=== PATIENT | female | born 1955 | race Caucasian/White ===

== ENCOUNTER 2017-09-12 20:11 | Emergency (ER) | payer BC, SELFPAY ==
[2017-09-12] MEDS ORDERED: METOPROLOL TAR 50 MG TAB ONE (21:22)
[2017-09-12] MEDS ORDERED: ASPIRIN 81 MG CHEWABLE TABLET ONE (21:22)
[2017-09-12 21:37] LABS: Absolute Lymphocytes (CBC) 1.4 K/uL (0.7-4.9); Absolute Monocytes 0.5 K/uL (0.1-1.3); Absolute Neutrophil 5.1 K/uL (1.8-8.0); Basophils % 0.8 % (0-1.3); Eosinophils % 1.4 % (0-4.4); Hematocrit 36.2 % (36.0-45.0); Lymphocytes % 19.4 % (15.3-44.8); MCH 30.8 pg (27.0-35.0); MCV 89.8 fL (80-100); MPV 7.1 fL (7.6-11.3); Monocytes % 6.7 % (3.3-12.3); RBC Red Blood Cell Count 4.03 M/uL (3.86-4.86)
[2017-09-12 21:45] LABS: Potassium 3.1 mEq/L (3.6-5.0)
[2017-09-12 21:52] LABS: Albumin 3.8 g/dL (3.2-5.5); Bilirubin Direct 0.1 mg/dL (0-0.2); Bilirubin Total 0.2 mg/dL (0.3-1.2); Magnesium 1.7 mg/dL (1.8-2.5); Protein, Total 6.9 g/dL (6.0-8.3)
[2017-09-12 21:55] LABS: CKMB Creatine Kinase MB 1.8 ng/ml (0.3-4.0)
--- NOTE | 2017-09-12 22:18 | ER ---
Nurse's Notes [facility] Name: Lola Douglas Age: 62 yrs Sex: Female : 1955 Arrival Date: 09/12/2017 Time: 20:17 Bed 26 Private MD: Diagnosis: Chest pain, unspecified Presentation: 09/12 20:21 Presenting complaint: Patient states: Chest pain for 1 month. Patient describes pain as aj burning that goes up into throat. 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 Transition of care: patient was not received from another setting of care. Onset of symptoms was August 2017. Care prior to arrival: None. 20:21 Method Of Arrival: Ambulatory aj 20:21 Acuity: CHRIS 3 aj Triage Assessment: 20:24 General: Appears in no apparent distress. comfortable, Behavior is anxious. Pain: aj Complains of pain in chest Pain currently is 8 out of 10 on a pain scale. Neuro: Level of Consciousness is awake, alert, obeys commands, Oriented to person, place, time, situation. Cardiovascular: Reports chest pain, nausea, Capillary refill < 3 seconds in bilateral fingers Patient's skin is warm and dry. GI: Reports indigestion, nausea. Derm: Skin is intact, is healthy with good turgor, Skin is pink, warm \T\ dry. normal. Historical: - Allergies: 20:24 PENICILLINS; aj 20:24 Sulfa (Sulfonamide Antibiotics); aj - Home Meds: 20:24 aspirin 81 mg Oral chew 1 tab once daily [Active]; metoprolol tartrate 50 mg Oral tab 1 aj tab once daily for Hypertension [Active]; Prednisone Oral [Active]; albuterol sulfate 2.5 mg /3 mL (0.083 %) Inhl nebu [Active]; - PMHx: 20:24 Anxiety; Hypertension; COPD; Myocardial infarction; aj - PSHx: 20:24 Heart stents; aj - Immunization history:: Adult Immunizations up to date. - Social history:: Smoking status: Patient uses tobacco products, electronic cigarette. Screenin:50 Abuse screen: Denies threats or abuse. rk2 20:50 Nutritional screening: No deficits noted. Tuberculosis screening: No symptoms or risk rk2 factors identified. Fall Risk None identified. Assessment: 20:50 General: Appears in no apparent distress. well developed, well nourished, Behavior is rk2 calm, cooperative. 20:50 Pain: Pain radiates to chest Pain began 2-3 days ago. Neuro: Level of Consciousness is rk2 alert, obeys commands, Oriented to person, place, time, situation. Cardiovascular: Rhythm is sinus rhythm. Respiratory: Airway is patent Respiratory effort is even, unlabored, Respiratory pattern is regular, symmetrical. Derm: Skin is pink, warm \T\ dry. 20:59 Reassessment: Xray completed \T\ bedside. rk2 22:20 Reassessment: Pt. refused to be admitted, signed AMA. Pt. understands the risks rk2 involved and possible consequences of her decision... Pt. was advised that if she has any changes or changes her mind and feels that she needs to be re-seen she is welcome to return. IV removed and pt. ambulated out on her own. Vital Signs: 20:24 BP 156 / 97; Pulse 101; Resp 23; Temp 97.7; Pulse Ox 99% on R/A; Weight 58.06 kg; aj Height 5 ft. 6 in. (167.64 cm); Pain 8/10; 21:30 BP 146 / 79; Pulse 80; Resp 17; rk2 22:00 BP 147 / 97; Pulse 69; Resp 17; Pulse Ox 98% on R/A; rk2 20:24 Body Mass Index 20.66 (58.06 kg, 167.64 cm) ED Course: 20:17 Patient arrived in ED. al2 20:23 Triage completed. aj 20:24 Arm band placed on left wrist. Patient placed in an exam room. aj 20:36 Denice Servin RN is Primary Nurse. rk2 20:39 Guillermo Rousseau PA is PHCP. cp 20:39 Guillermo Mnan MD is Attending Physician. cp 20:50 Patient has correct armband on for positive identification. Bed in low position. Call rk2 light in reach. line operator on. Pulse ox on. 20:50 Patient maintains SpO2 saturation greater than 95% on room air. rk2 20:59 XRAY Chest (1 view) Sent. rk2 21:02 X-ray completed. Portable x-ray completed in exam room. Patient tolerated procedure kc2 well. 21:03 XRAY Chest (1 view) In Process Unspecified. EDMS 21:16 Basic Metabolic Panel Sent. rk2 21:16 Ckmb Sent. rk2 21:16 CPK Sent. rk2 22:24 No provider procedures requiring assistance completed. IV discontinued. rk2 Administered Medications: 21:29 Drug: Metoprolol TARTRATE (Lopressor) 50 mg Route: PO; rk2 22:00 Follow up: Response: No adverse reaction rk2 21:30 Not Given (Pt. states that she has had 5 81 mg ASA today already): Aspirin Chewable rk2 Tablet 324 mg PO once; 81 mg tablets x 4 Outcome: 22:24 AMA AMA form signed rk2 22:24 Condition: good 22:24 Instructed on Regarding AMA 22:26 Patient left the ED. rk2 Signatures: Dispatcher [employer] EDJenny Frnacis, RN RN Guillermo Raymundo PA PA cp Carr, Kelsie kc2 Pamela Lora2 Denice Servin RN RN rk2
--- NOTE | 2017-09-12 22:18 | EDPHYS ---
Physician Documentation [facility] Name: Lola Douglas Age: 62 yrs Sex: Female : 1955 Arrival Date: 09/12/2017 Time: 20:17 Bed 26 Private MD: ED Physician Guillermo Mann HPI: 09/12 21:01 This 62 yrs old Female presents to ER via Ambulatory with complaints of Chest cp Pain. 21:01 The patient or guardian reports chest pain that is located primarily in the anterior cp chest wall, bilaterally. 21:01 Onset: 1 month(s) ago. Associated signs and symptoms: Pertinent negatives: cough, cp diaphoresis, headache, lower extremity pain, lower extremity swelling, near syncope, recent travel, syncope, vomiting. The chest pain is described as burning. Duration: The patient or guardian reports multiple episodes, that are intermittent, that wax and wane. Modifying factors: the symptoms are aggravated by emotionally stressful situations. Severity of pain: in the emergency department the pain has resolved and did so while in waiting room. Historical: - Allergies: 20:24 PENICILLINS; aj 20:24 Sulfa (Sulfonamide Antibiotics); aj - Home Meds: 20:24 aspirin 81 mg Oral chew 1 tab once daily [Active]; metoprolol tartrate 50 mg Oral tab 1 aj tab once daily for Hypertension [Active]; Prednisone Oral [Active]; albuterol sulfate 2.5 mg /3 mL (0.083 %) Inhl nebu [Active]; - PMHx: 20:24 Anxiety; Hypertension; COPD; Myocardial infarction; aj - PSHx: 20:24 Heart stents; aj - Immunization history:: Adult Immunizations up to date. - Social history:: Smoking status: Patient uses tobacco products, electronic cigarette. ROS: 21:05 Constitutional: Negative for body aches, chills, fever, poor PO intake. cp 21:05 Eyes: Negative for injury, pain, redness, and discharge. cp 21:05 ENT: Negative for drainage from ear(s), ear pain, sore throat, difficulty swallowing, difficulty handling secretions. 21:05 Cardiovascular: Positive for chest pain, Negative for edema, palpitations. 21:05 Respiratory: Negative for cough, shortness of breath, wheezing. 21:05 Abdomen/GI: Negative for abdominal pain, vomiting, diarrhea, constipation, black/tarry stool, rectal bleeding. 21:05 Back: Negative for pain at rest, pain with movement, radiated pain. 21:05 : Negative for urinary symptoms. 21:05 Skin: Negative for cellulitis, rash. 21:05 Neuro: Negative for altered mental status, dizziness, headache, syncope, near syncope, weakness. 21:05 All other systems are negative. Exam: 20:45 ECG was reviewed by the Attending Physician. cp 21:10 Constitutional: The patient appears in no acute distress, alert, awake, cp non-diaphoretic, non-toxic, well developed, well nourished. 21:10 Head/Face: Normocephalic, atraumatic. Eyes: Pupils equal round and reactive to light, cp extra-ocular motions intact. Lids and lashes normal. Conjunctiva and sclera are non-icteric and not injected. Cornea within normal limits. Periorbital areas with no swelling, redness, or edema. ENT: Nares patent. No nasal discharge, no septal abnormalities noted. Tympanic membranes are normal and external auditory canals are clear. Oropharynx with no redness, swelling, or masses, exudates, or evidence of obstruction, uvula midline. Mucous membranes moist. Chest/axilla: Normal chest wall appearance and motion. Nontender with no deformity. No lesions are appreciated. 21:10 Cardiovascular: Rate: tachycardic, Rhythm: regular, Pulses: Pulses are 2+ in right radial artery and left radial artery. Heart sounds: murmur, not appreciated, Edema: is not appreciated, JVD: is not appreciated. 21:10 Respiratory: the patient does not display signs of respiratory distress, Respirations: normal, no use of accessory muscles, no retractions, no splinting, no tachypnea, labored breathing, is not present, Breath sounds: are clear throughout, no decreased breath sounds, no stridor, no wheezing. 21:10 Abdomen/GI: Inspection: abdomen appears normal, Bowel sounds: active, all quadrants, Palpation: abdomen is soft and non-tender, in all quadrants, rebound tenderness, is not appreciated, voluntary guarding, is not appreciated, involuntary guarding, is not appreciated. 21:10 Back: pain, is absent, ROM is normal. 21:10 Skin: cellulitis, is not appreciated, no rash present. 21:10 Neuro: Orientation: to person, place \T\ time. Mentation: is normal, Cerebellar function: is grossly normal, Motor: moves all fours, strength is normal, Sensation: no obvious gross deficits. Vital Signs: 20:24 BP 156 / 97; Pulse 101; Resp 23; Temp 97.7; Pulse Ox 99% on R/A; Weight 58.06 kg; aj Height 5 ft. 6 in. (167.64 cm); Pain 8/10; 21:30 BP 146 / 79; Pulse 80; Resp 17; rk2 22:00 BP 147 / 97; Pulse 69; Resp 17; Pulse Ox 98% on R/A; rk2 20:24 Body Mass Index 20.66 (58.06 kg, 167.64 cm) aj MDM: 20:43 Patient medically screened. haven 21:00 Differential diagnosis: abnormal EKG, acute myocardial infarction, acute pericarditis, cp anxiety, costochondritis, esophagitis, gastritis, pancreatitis, pleurisy, pneumonia, pneumothorax, pulmonary embolus, stable angina, unstable angina. 22:16 The patient was given aspirin in the Emergency Department. Data reviewed: vital signs, cp nurses notes, lab test result(s), EKG, radiologic studies, plain films. 22:17 Refusal of service: The patient/guardian displays adequate decision making capability cp and despite a detailed discussion of alternatives, benefits, risks, and consequences refuses: Admission to the hospital for further work-up and treatment. 09/12 20:47 Order name: Basic Metabolic Panel cp 09/12 20:47 Order name: BNP; Complete Time: 22:02 cp 09/12 22:02 Interpretation: BNP 133; Reviewed. cp 09/12 20:47 Order name: CBC with Diff; Complete Time: 21:55 cp 09/12 21:55 Interpretation: Normal except: MPV 7.1. cp 09/12 20:47 Order name: Ckmb cp 09/12 20:47 Order name: CPK cp 09/12 20:47 Order name: LFT's; Complete Time: 21:55 cp 09/12 21:56 Interpretation: Normal except: BILIT 0.2. cp 09/12 20:47 Order name: Magnesium; Complete Time: 21:55 cp 09/12 21:55 Interpretation: Abnormal: MG 1.7. cp 09/12 20:47 Order name: PT-INR; Complete Time: 21:55 cp 09/12 20:47 Order name: Ptt, Activated; Complete Time: 21:55 cp 09/12 21:56 Interpretation: PTT 24.1; Reviewed. cp 09/12 20:47 Order name: Troponin (emerg Dept Use Only); Complete Time: 22:02 cp 09/12 20:47 Order name: XRAY Chest (1 view) cp 09/12 20:47 Order name: Basic Metabolic Panel; Complete Time: 21:55 EDMS 09/12 21:55 Interpretation: Normal except: K 3.1; GFR 78. cp / 20:47 Order name: CKMB Creatine Kinase MB; Complete Time: 21:55 EDMS 09/12 20:47 Order name: Creatine Phosphokinase; Complete Time: 21:55 EDMS 09/12 20:47 Order name: EKG; Complete Time: 20:48 cp 09/12 20:47 Order name: Cardiac monitoring; Complete Time: 20:59 cp 09/12 20:47 Order name: EKG - Nurse/Tech; Complete Time: 20:59 cp 09/12 20:47 Order name: IV Saline Lock; Complete Time: 21:15 cp 09/12 20:47 Order name: Labs collected and sent; Complete Time: 21:16 cp 09/12 20:47 Order name: O2 Per Protocol; Complete Time: 20:59 cp 09/12 20:47 Order name: O2 Sat Monitoring; Complete Time: 20:59 cp 09/12 20:47 Order name: Urine Dipstick-Ancillary (obtain specimen) cp EC:45 Rate is 78 beats/min. Rhythm is regular. OH interval is normal. QRS interval is normal. cp QT interval is normal. No ST changes noted. Interpreted by me. Reviewed by me. Administered Medications: 21:29 Drug: Metoprolol TARTRATE (Lopressor) 50 mg Route: PO; rk2 22:00 Follow up: Response: No adverse reaction rk2 21:30 Not Given (Pt. states that she has had 5 81 mg ASA today already): Aspirin Chewable rk2 Tablet 324 mg PO once; 81 mg tablets x 4 Disposition: 09/13 07:00 Co-signature as Attending Physician, Guillermo Mann MD I agree with the assessment and haven plan of care. Disposition: 09/12/17 22:18 Patient has left against medical advice. Impression: Chest pain, unspecified. - Patients states they are going to Home. - Condition is Stable. - Discharge Instructions: Nonspecific Chest Pain, Aspirin and Your Heart. School release form form. Follow up: Private Physician; When: Tomorrow; Reason: Recheck today's complaints. - Problem is new. - Symptoms have improved. Signatures: Dispatcher [employer] Jenny Murray RN RN aj Anderson, Corey, MD MD cha Page, Corey, PA PA cp Kidder, Rhonda, RN RN rk2 Corrections: (The following items were deleted from the chart) 09/12 21:18 21:17 Constitutional: Negative for cp cp
--- NOTE | 2017-09-13 08:22 | RAD REPORT ---
EXAM DESCRIPTION: RAD - Chest Single View - 09/12/2017 9:05 pm CLINICAL HISTORY: Chest pain COMPARISON: June 2016 TECHNIQUE: AP portable chest image was obtained 9 hours . FINDINGS: Lungs are clear of acute finding. Left base granuloma noted. Interstitial markings are sim ilar to the prior study. Heart and vasculature are normal. No measurable pleural effusion and no pneu mothorax. No gross bony abnormality seen. No acute aortic findings suspected. IMPRESSION: No acute cardiopulmonary process. No significant interval change.
--- NOTE | 2017-09-15 22:48 | EKG ---
Test Date: 2017-09-12 Test Time: 20:38:01 Stain Remover: EDUARD MEASUREMENT RESULTS: Intervals: Rate: 78 WY: 154 QRSD: 90 QT: 362 QTc: 412 [place]: P: 27 W[place]: 154 QRS: 45 T: 2 INTERPRETIVE STATEMENTS: Normal sinus rhythm Normal ECG Compared to ECG 06/20/2016 17:15:01 No significant changes Electronically Signed On 09-15-17 22:46:54 CDT by Emigdio Gordon
== END 2017-09-12 22:26 | disposition left against medical advice (07) ==
LOC: ER 20:11
DX: R07.9 Chest pain, unspecified (principal); I10 Essential (primary) hypertension; J44.9 Chronic obstructive pulmonary disease, unspecified; F41.9 Anxiety disorder, unspecified; I25.2 Old myocardial infarction; Z72.0 Tobacco use; Z79.82 Long term (current) use of aspirin; Z88.0 Allergy status to penicillin; Z88.2 Allergy status to sulfonamides; Z95.818 Presence of other cardiac implants and grafts
CPT/HCPCS: 36415; 71045; 80048; 80076; 82550; 82553; 83735; 83880; 84484; 85025; 85610; 85730; 93005; 99285